=== PATIENT | female | born 1945 | race Caucasian/White ===

== ENCOUNTER 2017-04-02 09:54 | Inpatient (IN) ==
[2017-03-27 17:49] LABS: Basophils # (Auto) 0 K/mcL (0.0-0.3); Basophils % (Auto) 0.3 % (0.0-2.0); Eosinophils # (Auto) 0.4 K/mcL (0.0-0.7); Lymphocytes # (Auto) 2.4 K/mcL (1.5-4.8); Lymphocytes % (Auto) 27.7 % (15.5-49.0); Mean Cell Volume 92.8 fL (80.0-100.0); Mean Corpuscular HGB Conc 33.4 g/dL (31.0-36.0); Monocytes # (Auto) 0.4 K/mcL (0.1-0.9); Platelet Count 368 K/mcL (140-440); RBC 4.25 M/mcL (4.00-5.20); Red Cell Distribution Width 13.6 % (11.5-14.5)
[2017-03-27 17:52] LABS: Appearance,Urine CLEAR; Bilirubin,Urine NEG (NEG); Color,Urine YELLOW; Glucose,Urine (UA) NORM (NEG); Leukocyte Esterase,Urine 2+ /uL (NEG); Protein,Urine NEG (NEG); Urine Blood NEG ery/mcL (<5); Urobilinogen,Urine NORM (NEG)
[2017-03-27 18:29] LABS: Blood Urea Nitrogen 13 mg/dl (8-23)
[2017-03-27 18:50] LABS: Bacteria,Urine 0 /hpf (0); Mucus,Urine FEW /hpf (0); Urine RBC 0 /hpf (0-1); Urine Squamous Epithelial Cell 3 /hpf (0-4); Urine WBC 2 /hpf (0-4)
[~2017-04-02 09:54] MED LIST: ACETAMINOPHEN 500 MG TABLET PO SCH; PREGABALIN 75 MG CAPSULE PO SCH; ceFAZolin 1 GM VIAL IV SCH; oxyCODONE 10 MG TAB.ER.12H PO SCH
[2017-04-02] MEDS ORDERED: KETOROLAC 30 MG, ROPIVACAINE HCL/PF 49.5 ML, EPINEPHrine 0.5 MG, 0.9 % SODIUM CHLORIDE ... IJ ONE (10:59)
[2017-04-02] MEDS ORDERED: MIDAZOLAM 5 MG/5 ML VIAL IV ONE (13:40)
[2017-04-02] MEDS ORDERED: ONDANSETRON 4 MG/2 ML VIAL IV ONE (13:40)
[2017-04-02] MEDS ORDERED: PHENYLEPHRINE 10 MG/ML VIAL IV ONE (13:40)
[2017-04-02] MEDS ORDERED: TRANEXAMIC ACID 1,000 MG/10 ML VIAL IV ONE ×2 (13:40→15:01)
[2017-04-02] MEDS ORDERED: DEXAMETHASONE 10 MG/ML VIAL IV ONE (13:40)
[2017-04-02] MEDS ORDERED: PROPOFOL 200 MG/20 ML VIAL IV ONE (13:40)
[2017-04-02] MEDS ORDERED: LIDOCAINE HCL/PF 100 MG/5 ML SYRINGE IV ONE (13:40)
[2017-04-02] MEDS ORDERED: fentaNYL 100 MCG/2 ML VIAL IV ONE (13:40)
[2017-04-02] MEDS ORDERED: GENTAMICIN SULFATE 800 MG/20 ML VIAL IR ONE (14:07)
[2017-04-02] MEDS ORDERED: FLUMAZENIL 0.1 MG/ML ML IV PRN (14:13)
[2017-04-02] MEDS ORDERED: MEPERIDINE 25 MG/ML SYRINGE IV PRN (14:13)
[2017-04-02] MEDS ORDERED: HYDROmorphone 2 MG/ML VIAL IV PRN ×2 (14:13→15:01)
[2017-04-02] MEDS ORDERED: diphenhydrAMINE 50 MG/ML VIAL IV PRN (14:13)
[2017-04-02] MEDS ORDERED: KETOROLAC 15 MG/ML VIAL IV PRN ×2 (14:13→15:01)
[2017-04-02] MEDS ORDERED: ePHEDrine 50 MG/ML AMPUL IV PRN (14:13)
[2017-04-02] MEDS ORDERED: METHOCARBAMOL 1,000 MG/10 ML VIAL IV PRN (14:13)
[2017-04-02] MEDS ORDERED: fentaNYL 100 MCG/2 ML VIAL IV PRN (14:13)
[2017-04-02] MEDS ORDERED: ATROPINE SULFATE 0.4 MG/ML VIAL IV PRN (14:13)
[2017-04-02] MEDS ORDERED: PROMETHAZINE 25 MG/ML VIAL IV PRN (14:13)
[2017-04-02] MEDS ORDERED: METOPROLOL TARTRATE 5 MG/5 ML VIAL IV PRN (14:13)
[2017-04-02] MEDS ORDERED: IPRATROPIUM/ALBUTEROL 3 ML AMPUL.NEB NEB PRN (14:13)
[2017-04-02] MEDS ORDERED: ONDANSETRON 4 MG/2 ML VIAL IV PRN ×2 (14:13→15:01)
[2017-04-02] MEDS ORDERED: NALOXONE HCL 0.4 MG/ML VIAL IV PRN (14:13)
[2017-04-02] MEDS ORDERED: LACTATED RINGERS 1,000 ML IV SCH (14:15)
--- NOTE | 2017-04-02 15:00 | Brief Operative Note ---
Date of procedure: 04/02/17 Pre-op diagnosis: right hip djd severe Post-op diagnosis: same Procedure: right payal with cementless componenets Grafts/Implants: Yes Anesthesia: GETA Complications: none Surgeon: Milo Martinez Superintendent Operating: Claudio Pichardo Estimated blood loss (cc): 58 Tourniquet Time (Minutes): 0 Specimens Removed/Pathology: none sent Condition: stable Disposition: PACU
[2017-04-02] MEDS ORDERED: BISACODYL 10 MG SUPP.RECT PR PRN (15:01)
[2017-04-02] MEDS ORDERED: BENZOCAINE/MENTHOL 1 LOZENGE PO PRN (15:01)
[2017-04-02] MEDS ORDERED: POLYETHYLENE GLYCOL 3350 17 GM PACKET PO PRN (15:01)
[2017-04-02] MEDS ORDERED: MAGNESIUM HYDROXIDE 30 ML ORAL.SUSP PO PRN (15:01)
[2017-04-02] MEDS ORDERED: FLEETS ADULT ENEMA PR PRN (15:01)
[2017-04-02] MEDS ORDERED: TEMAZEPAM 15 MG CAPSULE PO PRN (15:01)
[2017-04-02] MEDS ORDERED: ACETAMINOPHEN 325 MG TABLET PO PRN (15:01)
[2017-04-02] MEDS: 0.45 % SODIUM CHLORIDE 1,000 ML IV SCH (16:24)
--- NOTE | 2017-04-02 16:24 | XRay Report ---
CLINICAL INFORMATION: Postop total hip prostheses COMPARISON: None. FINDINGS: The right total hip prostheses is anatomically aligned. No osseous abnormality. Both SI and left hip joints are normal in width and alignment without arthritic change. Soft tissue swelling over the surgical site seen as expected IMPRESSION: Negative Interpreted and Authenticated by: Luan Cortez 04/02/17
--- NOTE | 2017-04-02 16:30 | Operative Note ---
DATE OF OPERATION: 04/02/2017 PREOPERATIVE DIAGNOSIS: Right hip degenerative arthritis, severe. POSTOPERATIVE DIAGNOSIS: Right hip degenerative arthritis, severe. PROCEDURE: Right total hip arthroplasty. SURGEON: Milo Martinez M.D. WEBSPHERE PORTAL ARCHITECT: Claudio Pichardo PA-C. ANESTHESIA: General LMA anesthesia. COMPLICATIONS: None. IMPLANTS PLACED: A size 12 stem from [facility], cementless right 50 mm cup with a 36 poly liner. Neck length is a neutral ceramic neck length. DESCRIPTION OF PROCEDURE: Patient was brought to the operating room and put to sleep with general LMA anesthesia. Once asleep, the patient had the right hip sterilely prepped and draped in the usual sterile fashion. Once done, we then confirmed the operative side as the right side, placed Ioban over the skin. The Lincoln positioner kept the patient in the left lateral position. We then dissected through the skin in a superior-posterior approach, identified the fascial layer, incised through the fascial layer, and then placed a Charnley retractor. Identifying the posterior capsule, we dislocated the hip superiorly. Once done, I then made the neck cut at 32 mm. Once done, we then subluxed the hip anteriorly, reamed up to the size 50, implanted a 50 cup at 20 degrees of anteversion and 40 degrees of inclination. We placed one 35 mm screw and a poly liner that was a 36 mm liner. Once done, I then broached up the femur and trialed a size 11 stem. The right leg was slightly longer, about 1 mm to 2 mm. Though the hip was slightly more unstable than what we would like, only able to get up to about 60 degrees at 90 degrees of flexion and adduction. Once done, we then took the x-ray, placed a size 12 stem. I then calcar reamed and then implanted the final stem with a neutral neck length 36 mm head. There was no complication. Hip was very stable through the range of motion, up to 80 degrees at internal rotation before subluxation occurred. We irrigated, closed the posterior capsule with a #1 Ethibond, closed the fascial layer with a Stratafix, and then the fatty layer was closed with a Stratafix and then 2-0 Vicryl, and then wound closure was either felicity or adhesive closure. The patient tolerated this well. There was no complication. ANA:connor Job ID: [id number] Doc ID: [id number] Milo Martinez MD
[2017-04-02] MEDS: rOPINIRole 0.25 MG TABLET PO SCH ×2 (17:47→23:00)
[2017-04-02] MEDS: HYDROcodone/APAP 10/325MG TABLET PO PRN ×2 (18:03→22:28)
[2017-04-02] MEDS: rOPINIRole 1 MG TABLET PO SCH (20:48)
[2017-04-02] MEDS: ASPIRIN 325 MG ENTERIC COATED TABLET PO SCH (20:49)
[2017-04-02] MEDS: DOCUSATE SODIUM 100 MG CAPSULE PO SCH (20:49)
[2017-04-02] MEDS ORDERED: SENNOSIDES 1 TABLET PO SCH (21:00)
[2017-04-02] MEDS ORDERED: IBUPROFEN 200 MG TABLET PO SCH (21:00)
[2017-04-02] MEDS ORDERED: ACETAMINOPHEN 325 MG TABLET PO SCH (21:00)
[2017-04-02] MEDS: ceFAZolin 1 GM VIAL IV SCH (22:13)
[2017-04-02] MEDS: 0.9 % SODIUM CHLORIDE 10 ML SYRINGE IV SCH (22:13)
[2017-04-03] MEDS: 0.45 % SODIUM CHLORIDE 1,000 ML IV SCH ×2 (01:53→12:19)
[2017-04-03] MEDS: HYDROcodone/APAP 10/325MG TABLET PO PRN ×3 (04:03→13:58)
[2017-04-03] MEDS: 0.9 % SODIUM CHLORIDE 10 ML SYRINGE IV SCH ×2 (05:42→13:59)
[2017-04-03] MEDS: ceFAZolin 1 GM VIAL IV SCH (05:42)
--- NOTE | 2017-04-03 07:46 | Orthopedic Progress Note ---
Subjective Patient information: Note initiated : 04/03/17 at 7:45 am Service Date, if different from initiated Date: [] Patient: Yola Doss 71 y/o F admitted on 04/02/17 for Right Total Hip Arthroplasty. Chief Complaint: [Pt is stable this morning on post operative day 1 without any significant concerns or complaints. Patients vital signs have remained stable. Patients dressing is dry and is grossly instact from a neurovascular and motor standpoint. Patients 10 point ROS is otherwise negative. ] Objective Vital signs: Vital Signs Temp Pulse Resp BP BP BP Pulse Ox 04/03/17 06:00 95 04/03/17 04:00 97.9 F 84 14 150/68 95 04/03/17 01:00 95 04/03/17 00:00 97.9 F 94 H 14 131/73 95 04/02/17 23:55 95 04/02/17 20:00 97.9 F 102 H 16 135/79 94 04/02/17 17:31 144/81 99 04/02/17 17:06 96 04/02/17 17:02 154/80 99 04/02/17 17:01 96 04/02/17 16:46 158/86 98 04/02/17 16:31 157/93 98 04/02/17 16:16 153/82 97 04/02/17 16:07 97.8 F 98 H 16 153/79 100 04/02/17 15:51 97.9 F 102 H 19 157/99 100 04/02/17 15:46 97.2 F 106 H 17 149/77 98 04/02/17 15:41 97.9 F 106 H 20 151/74 99 04/02/17 15:36 97.8 F 109 H 17 135/73 98 04/02/17 15:31 97.9 F 109 H 20 128/51 100 04/02/17 15:26 97.9 F 106 H 16 131/52 96 04/02/17 15:21 97.9 F 99 H 16 130/79 99 04/02/17 10:07 98 F 18 119/71 96 Intake and Output 04/02/17 04/03/17 04/03/17 21:59 05:59 13:59 Intake Total 1055 / 1055 100 / 100 Output Total 1351 / 1351 1100 / 1100 Balance -296 / -296 -1000 / -1000 Intake: Oral 1055 / 1055 100 / 100 Output: Void Amount 1350 / 1350 1100 / 1100 # of times incontinent of urine Other: Meal Soup, sandwich, ice cream Percent of Meal Consumed 100% Feeding Ability Independent # Voids 1 Weight 196 lb 8 oz Intake & Output: Intake & Output 04/02/17 04/03/17 04/03/17 21:59 05:59 13:59 Intake Total 1055 / 1055 100 / 100 Output Total 1351 / 1351 1100 / 1100 Balance -296 / -296 -1000 / -1000 Weight 196 lb 8 oz Intake: Oral 1055 / 1055 100 / 100 Output: Void Amount 1350 / 1350 1100 / 1100 # of times incontinent of urine Other: Meal Soup, sandwich, ice cream Percent of Meal Consumed 100% Feeding Ability Independent # Voids 1 Incision: Yes healing Incision clean and dry: Yes Dressing: Yes clean, Yes dry Weight bearing status: full Neurological exam IM: Yes motor sensory intact, Yes neurovascular intact Extremities exam IM: Yes Foot pink and warm, Yes neurovascular intact - Labs CBC & BMP: 04/03/17 05:07 03/27/17 13:42 Labs: Orthopedic Labs 03/27/17 13:42 PT 12.7 INR 1.0 APTT 28 04/03/17 03/27/17 05:07 13:42 Hgb 13.2 Hct 38.2 39.4 Assessment and Plan (1) Hx of total hip arthroplasty The patient has been educated regarding dressing care, Physical Therapy recommendations, home exercises, restrictions, and follow up appointments. The patient has had all necessary DME prescribed. The patient has remained stable during their hospital course. The patient was discharge with a stable exam. Leave Dermabond patch intact until followup Status: Acute
--- NOTE | 2017-04-03 07:48 | Discharge Summary ---
Ortho Discharge - VERONICA - Patient Instructions Diet: Regular Diet Activity: activity as tolerated, weight bearing as tolerated Total Hip Protocol: Follow activity instructions as provided by Physical Therapy. Dressing Care: May shower in 2 days Patient Education: Total Hip Replacement (DC) - Problem Maintenance (1) Hx of total hip arthroplasty Status: Acute - Follow Up Plan Follow Up Appointments: Claudio Pichardo PA-C [Physician [employer] And Unloader] - 04/17/17 10:10 am Disposition: Hospice - Home Prognosis: Good Rehab Potential: Good I certify that the patient requires SNF services: No Overall status at discharge: patient is progressing back to baseline - Orders For Discharge Prescriptions: Aspirin [Ecotrin] 325 mg PO BID #60 tab.ec Docusate Sodium [Colace] 100 mg PO BID #60 cap HYDROcodone/APAP 10/325MG [[place] 10-325Mg] 1 - 2 tab PO Q4HP PRN #75 tab PRN Reason: Pain Level 3-6
[2017-04-03] MEDS ORDERED: CALCIUM CARBONATE 500 MG TAB.CHEW PO SCH (09:00)
[2017-04-03] MEDS: ASPIRIN 325 MG ENTERIC COATED TABLET PO SCH (09:26)
[2017-04-03] MEDS: DOCUSATE SODIUM 100 MG CAPSULE PO SCH (09:26)
[2017-04-03] MEDS: rOPINIRole 1 MG TABLET PO SCH (13:58)
== END 2017-04-03 16:00 | disposition hospice, home (50) | DRG 470 ==
LOC: MEDSUR 09:54
PROVIDERS: ADMIT Orthopaedic Surgery; ATTEND Orthopaedic Surgery